=== PATIENT | male | born 1945 | race Caucasian/White ===

== ENCOUNTER 2018-06-20 15:06 | Observation (INO) | payer MEDICARE, OTHER ==
--- NOTE | 2018-06-20 15:59 | ED ---
HPI Cardiac - HPI Summary HPI Summary: The patient is a 72 y/o M presenting to [facility] accompanied by son with a chief complaint of pain in his left arm and headaches for the last four days. The pain is currently not present, but when present, movement aggravates the pain. He additionally c/o heart palpitations, nausea without vomiting, and occasional dizziness, weakness, and lightheadedness. He denies CP and SOB. He has hx of Type II DM and depression. He also had a stent placed in the early . His last stress test was last year. No smoking or EtOH. - History of Current Complaint Chief Complaint: EDChestPainROMI Stated Complaint: CHEST PAIN Time Seen by Provider: 06/20/18 15:40 Hx Obtained From: Patient Onset/Duration: Started Days Ago - four days Timing: Lasting Days - for four days Initial Severity: Moderate Current Severity: None Pain Intensity: 0 Pain Scale Used: 0-10 Numeric Character: Fast Aggravating Factor(s): Movement - when pain is present Alleviating Factor(s): Nothing Associated Signs and Symptoms: Positive: Headaches, Weakness - occasional, Dizziness - occasional, Nausea. Negative: Chest Pain, Shortness of Breath, Vomiting - Allergy/Home Medications Allergies/Adverse Reactions: Allergies Allergy/AdvReac Type Severity Reaction Status Date / Time diphenhydramine Allergy Agitation Verified 06/20/18 15:11 [From Benjarrelll] Home Medications: Home Medications Aspirin EC TAB* [Ecotrin EC Low Dose 81 MG*] 81 mg PO DAILY 06/20/18 [History Confirmed 06/20/18] Atorvastatin* [Lipitor*] 40 mg PO BEDTIME 06/20/18 [History Confirmed 06/20/18] Calcium Carbonate 650 mg PO DAILY 06/20/18 [History Confirmed 06/20/18] Citalopram TAB* [CeleXA TAB*] 20 mg PO DAILY 06/20/18 [History Confirmed ] Finasteride TAB* [Proscar TAB*] 5 mg PO BEDTIME 06/20/18 [History Confirmed 03/29] Hydrochlorothiazide TAB* [Hydrodiuril TAB*] 25 mg PO DAILY 06/20/18 [History Confirmed 06/20/18] Losartan TAB* [Cozaar TAB*] 100 mg PO BEDTIME 06/20/18 [History Confirmed ] Mirtazapine TAB* [Remeron TAB*] 7.5 mg PO BEDTIME 06/20/18 [History Confirmed ] amLODIPine TAB* [Norvasc 5 mg TAB*] 10 mg PO BEDTIME 06/20/18 [History Confirmed 06/20/18] cloNIDine TAB* [Catapres 0.1 MG TAB*] 0.1 mg PO TID PRN 06/20/18 [History Confirmed 06/20/18] glipiZIDE TAB* [Glucotrol TAB*] 10 mg PO BID WITH MEALS 06/20/18 [History Confirmed 06/20/18] metFORMIN* [Glucophage 500 MG TAB *] 500 mg PO BID WITH MEALS 06/20/18 [History Confirmed 06/20/18] PMH/Surg Hx/FS Hx/Imm Hx Endocrine/Hematology History: Reports: Hx Diabetes - Type II Psychiatric History: Reports: Hx Depression - Surgical History Surgery Procedure, Year, and Place: stent placement Infectious Disease History: No Infectious Disease History: Denies: Traveled Outside the [place] in Last 30 Days - Family History Known Family History: Positive: Cardiac Disease, Diabetes - Social History Alcohol Use: None Hx Substance Use: No Substance Use Type: Reports: None Hx Tobacco Use: No Smoking Status (MU): Never Smoked Tobacco Do You Chew or Dip Tobacco: No Have You Chewed or Dipped Tobacco in the LAST YEAR: No Review of Systems Negative: Fever, Chills Negative: Sore Throat Positive: Palpitations. Negative: Chest Pain Negative: Shortness Of Breath, Cough Positive: Nausea. Negative: Abdominal Pain, Vomiting Negative: dysuria, hematuria Positive: Other - pain in left arm. Negative: Myalgia, Edema Negative: Rash Neurological: Other - occasional dizziness and lightheadedness Positive: Headache. Negative: Weakness All Other Systems Reviewed And Are Negative: Yes Physical Exam - Summary Physical Exam Summary: Constitutional: Well-developed, Well-nourished, Alert. (-) Distressed Skin: Warm, Dry HENT: Normocephalic; Atraumatic Eyes: Conjunctiva normal Neck: Musculoskeletal ROM normal neck. (-) JVD, (-) Stridor, (-) Tracheal deviation Cardio: Rhythm regular, rate normal, Heart sounds normal; Intact distal pulses; The pedal pulses are 2+ and symmetric. Radial pulses are 2+ and symmetric. (-) Murmur Pulmonary/Chest wall: Effort normal. (-) Respiratory distress, (-) Wheezes, (-) Rales Abd: Soft, (-) epigastric tenderness, (-) Distension, (-) Guarding, (-) Rebound Musculoskeletal: (-) Edema Lymph: (-) Cervical adenopathy Neuro: Alert, Oriented x3 Psych: Mood and affect Normal Triage Information Reviewed: Yes Vital Signs On Initial Exam: Initial Vitals Temp Pulse Resp BP Pulse Ox 98.6 F 83 17 176/84 95 06/20/18 15:09 06/20/18 15:09 06/20/18 15:09 06/20/18 15:09 06/20/18 15:09 Vital Signs Reviewed: Yes - Nika Coma Scale Best Eye Response: 4 - Spontaneous Best Motor Response: 6 - Obeys Commands Best Verbal Response: 5 - Oriented Coma Scale Total: 15 Diagnostics - Vital Signs Vital Signs Temp Pulse Resp BP Pulse Ox 06/20/18 15:09 98.6 F 83 17 176/84 95 - Laboratory Result Diagrams: 06/20/18 15:57 06/20/18 15:57 Lab Statement: Any lab studies that have been ordered have been reviewed, and results considered in the medical decision making process. - Radiology CXR Radiology Interpretation Completed By: Radiologist Summary of Radiographic Findings: No radiographic evidence for acute cardiopulmonary abnormality on this portable chest x-ray. ED physician has reviewed this report. - CT Brain CT CT Interpretation Completed By: Radiologist Summary of CT Findings: 1. No acute intracranial pathology. 2. Chronic small vessel ischemic changes. ED physician has reviewed this report. - EKG 1513 Cardiac Rate: NL - 74 BPM EKG Rhythm: Sinus Rhythm Summary of EKG Findings: No STEMI. Disposition - Course Course Of Treatment: The patient is a 72 y/o M presenting to [facility] accompanied by son with a chief complaint of pain in his left arm and headaches for the last four days. He additionally c/o heart palpitations, nausea without vomiting , and occasional dizziness, weakness, and lightheadedness. He denies CP and SOB. Hx of Type II DM and depression. He also had a stent placed in the early . Most recent stress test last year. Upon physical exam, the patient exhibits no acute abnormalities. Blood work reveals elevated BUN/Creatinine and glucose. EKG is normal. CXR is negative. Brain CT is negative. I spoke with Dr. James at 1800; he accepts the patient for admission. Patient understands the need for admission and is agreeable. He is diagnosed with angina. - Diagnoses Provider Diagnoses: Angina at rest - Physician Notifications Discussed Care Of Patient With: Max James - hospitalist Time Discussed With Above Provider: 18:00 Instructed by Provider To: Other - Dr. James accepts the patient for admission. Discharge - Sign-Out/Discharge Documenting (check all that apply): Patient Departure - Patient will be admitted to [facility] for further care by Dr. Fang. - Discharge Plan Condition: Stable Disposition: ADMITTED TO [facility] - Billing Disposition and Condition Condition: STABLE Disposition: Admitted to [facility] - Attestation Statements Document Initiated by Anshul: Yes Documenting Scribe: Tayler Garza Provider For Whom Anshul is Documenting (Include Credential): Dr. Julio Cruz MD Scribe Attestation: I, Tayler Garza, scribed for Dr. Julio Cruz MD on 06/20/18 at 2115. Scribe Documentation Reviewed: Yes Provider Attestation: The documentation as recorded by the Tayler ro accurately reflects the service I personally performed and the decisions made by me, Dr. Julio Cruz MD Status of Scribe Document: Viewed
[2018-06-20 16:06] LABS: ABS Basophils 0 10^3/ul (0-0.2); ABS Eosinophils 0.1 10^3/ul (0-0.6); ABS Lymphocytes 1.1 10^3/ul (1.0-4.8); ABS Monocytes 0.4 10^3/ul (0-0.8); ABS Neutrophils 3.4 10^3/ul (1.5-7.7); ABS Nucleated RBC 0 10^3/ul; Eosinophil % 1.3 %; Hematocrit 40 % (42-52); Hemoglobin 13.9 g/dl (14.0-18.0); Lymphocyte % 21.6 %; Mean Corpuscular HGB Conc 35 g/dl (31-36); Mean Corpuscular Hemoglobin 29 pg (27-31); Mean Corpuscular Volume 84 fL (80-94); Mean Platelet Volume 6.5 fL (7.4-10.4); Nucleated Red Blood Cells % 0.1; Platelet Count 294 10^3/ul (150-450); Red Blood Count 4.81 10^6/ul (4.00-5.40); Red Cell Distribution Width 14 % (10.5-15); White Blood Count 5.1 10^3/ul (3.5-10.8)
[2018-06-20 16:13] LABS: INR 0.93 (0.77-1.02)
[2018-06-20 16:25] LABS: Albumin 4.6 g/dL (3.2-5.2); Albumin/Globulin Ratio 1.9 (1-3); BUN/Creatinine Ratio 29.4 (8-20); Calcium 9.2 mg/dL (8.6-10.3); EGFR Non-African American 51.4 (>60); Globulin 2.4 g/dL (2-4); Potassium 4.4 mmol/L (3.5-5.0); Total Bilirubin 0.6 mg/dL (0.2-1.0)
[2018-06-20] MEDS ORDERED: Acetaminophen TAB* 325 MG PO PRN (17:55)
[2018-06-20] MEDS ORDERED: Dextrose 50% Syringe 50 ML* 25 GM/50 ML SYRINGE IV PUSH PRN (17:58)
[2018-06-20] MEDS ORDERED: cloNIDine TAB* 0.1 MG PO PRN (17:59)
[2018-06-20] MEDS ORDERED: NS 0.9% 1000 ML* 1,000 ML IV SCH (18:00)
--- NOTE | 2018-06-20 19:42 | HP ---
CC: Chanel Martines NP, [facility]; Dr. Segovia,[facility] * HISTORY AND PHYSICAL: DATE OF ADMISSION: 06/20/18 PRIMARY CARE PROVIDER: Chanel Martines NP, from [facility]. CELLOPHANE WRAPPING EXAMINER: Dr. Segovia from [place] in [place]. CHIEF COMPLAINT: Left arm pain and headache. HISTORY OF PRESENT ILLNESS: Khari Baldwin is a 72-year-old male with history of diabetes, hypertension, hyperlipidemia and coronary artery disease whose last stent was placed into proximal LAD in 2008 at . The patient stated that he had a cardiac stress test approximately 2 years ago, which was unremarkable. Today, he presented to the hospital since he noted to have headaches and left arm pain for the past 4 days. The patient stated that this started on Sunday, which was 4 days ago. In the evening, he developed frontal headache, he vomited once and he also had left shoulder pain. The patient stated that usually the headaches come and go and coincide also with left shoulder pain. It usually happens in the evening when he is sitting in the afternoon watching TV. The headache and the arm pain are not exertional. There are no alleviating or aggravating factors, but they do tend to go away after he takes ibuprofen. They usually last minutes. He has noted that the headache is becoming more and more intense and he came into the ED for evaluation. Due to his left arm pain coinciding with a headache, the ER physician asked the hospitalist service to admit the patient for observation to rule out acute coronary syndrome. PAST MEDICAL HISTORY: 1. History of diabetes, type 2. 2. Hypertension. 3. Dyslipidemia. 4. Coronary artery disease, status post LAD proximal stenting in 2008 at [place], [place]. The patient stated that he had another cardiac catheterization a year later at the [facility] in [place], during which time, he did not require any further stenting. 5. History of right inguinal hernia. 6. Retinal detachment surgery in the right eye and bilateral cataract surgery. HOME MEDICATIONS: Include: 1. Metformin 500 mg b.i.d. 2. Aspirin 81 mg daily. 3. Remeron 7.5 mg at bedtime. 4. Losartan 100 mg daily. 5. Glipizide 10 mg b.i.d. 6. Hydrochlorothiazide 25 mg daily. 7. Proscar 5 mg daily. 8. Clonidine 0.1 mg t.i.d. 9. Celexa 20 mg daily. 10. Calcium carbonate 650 mg daily. 11. Atorvastatin 40 mg daily. 12. Amlodipine 10 mg daily. ALLERGIES: DIPHENHYDRAMINE. FAMILY HISTORY: Positive for mother who of heart attack in her 80s. Father left when he was young and his health history is unknown. SOCIAL HISTORY: The patient denies any tobacco, alcohol, or drug use. He is currently retired. 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 REVIEW OF SYSTEMS: Please see history of present illness. In addition to above mentioned, the patient stated that he has not had any recent travels. He denies any dyspnea on exertion. Apart from the headaches, he had been sleeping rather well. His weight had been unchanged. He has not had any recent illnesses. All the remaining 12 systems were reviewed with the patient and were otherwise negative. PHYSICAL EXAMINATION GENERAL: The patient is a very pleasant 72-year-old male, who is in no acute distress. Alert, awake, and oriented x3. VITAL SIGNS: Blood pressure of 176/84, heart rate of 83 and regular, respiratory rate 17, oxygen saturation 97% on room air, temperature 98.6. HEENT: Head: Atraumatic, normocephalic. Eyes: Pupils are equal, reactive to light and accommodation. Oropharynx is clear. Mucosa moist. NECK: Supple. No JVD. No bruits bilaterally. RESPIRATORY: Clear to auscultation bilaterally. CARDIOVASCULAR: Regular rate and rhythm. No murmur. ABDOMEN: Soft, nontender. Bowel sounds are present in all 4 quadrants. EXTREMITIES: There is no edema. Pulses are +2 bilaterally. No clubbing or cyanosis. NEUROLOGIC: Speech is clear. Cranial nerves II through XII are grossly intact. Motor strength is 5/5 bilaterally. PSYCHIATRIC: Oriented x3 with no evidence of anxiety or depression. DIAGNOSTIC STUDIES/LAB DATA: White blood cell count of 5.1, [id number], hematocrit 40, and platelets 294. Sodium 137, potassium 4.4, chloride 105, carbon dioxide 24, BUN 40, creatinine 1.36. Liver function tests unremarkable. Lactic acid 1.6, glucose of 250. Troponin of 0.01. The patient's EKG shows normal sinus rhythm with mild ST depression in the inferior leads. There was no old EKG available for comparison. The patient's portable chest x-ray showed no acute cardiopulmonary abnormality. ASSESSMENT AND PLAN: 1. Four days of headache that coincides with left shoulder pain. The patient did have an episode of nausea and vomiting once at the beginning of the headache. At this point, I will obtain a CT of the brain to rule out intracranial hemorrhage. The patient stated that he had gas heating in his house , but he is not aware of having carbon monoxide alarm. He has not had problems recently with this heating. 2. In regards to the patient's left shoulder pain being equivalent of angina. It is a little bit further since the pain is not exercise related at all. The patient has had good exercise tolerance so far. Nevertheless, he does have history of significant heart disease. At this point, the patient is going to be observed on telemetry monitored bed with followup troponins and cardiac stress test in the morning. 3. In regards to the patient's hypertension, at this point he is hypertensive, I believe it is probably a little bit of white coat hypertension. I will continue him on most of his medications with the exception of hydrochlorothiazide. The patient appears may be slightly dehydrated and the hydrochlorothiazide is going to be held and the patient is going to be placed on gentle intravenous hydration. 4. In regards to the patient's diabetes, the patient is going to be placed on insulin sliding scale, diabetic diet and his oral hypoglycemics are going to be held while in the hospital. 5. For DVT prophylaxis, the patient is going to be placed on heparin subcutaneously. 6. The patient's code status is full and his surrogate is his son, Khari. TIME SPENT: Approximately 65 minutes was spent on admission of this patient, more than half that time was spent [id number] with the patient during the interview and physical exam. [id number]/[facility] #: [id number] ROSSI
[2018-06-20] MEDS ORDERED: Losartan TAB* 25 MG PO SCH (20:00)
[2018-06-20] MEDS ORDERED: amLODIPine TAB* 5 MG PO SCH (20:00)
[2018-06-20] MEDS ORDERED: Atorvastatin* 40 MG TAB PO SCH (20:00)
[2018-06-20] MEDS ORDERED: Finasteride TAB* 5 MG PO SCH (20:00)
[2018-06-20] MEDS: cloNIDine TAB* 0.1 MG PO SCH (20:43)
[2018-06-20] MEDS: Insulin LISPRO* 1 UNITS UNIT SUBCUT SCH (20:44)
[2018-06-20] MEDS ORDERED: Mirtazapine TAB* 15 MG PO SCH (21:00)
[2018-06-20] MEDS: Heparin VIAL(*) 5000 UNITS/ML VIAL (FIVE THOUSAND) SUBCUT SCH (21:31)
[2018-06-21] MEDS: Heparin VIAL(*) 5000 UNITS/ML VIAL (FIVE THOUSAND) SUBCUT SCH ×2 (05:44→14:18)
[2018-06-21] MEDS: Insulin LISPRO* 1 UNITS UNIT SUBCUT SCH ×2 (08:13→13:01)
[2018-06-21] MEDS: Aspirin EC TAB* 81 MG TAB.EC PO SCH ×2 (08:22→12:08)
[2018-06-21] MEDS: cloNIDine TAB* 0.1 MG PO SCH (08:22)
[2018-06-21] MEDS: Citalopram TAB* 20 MG PO SCH ×2 (08:22→12:08)
[2018-06-21 08:35] LABS: ABS Basophils 0 10^3/ul (0-0.2); ABS Eosinophils 0.1 10^3/ul (0-0.6); ABS Lymphocytes 1.4 10^3/ul (1.0-4.8); ABS Monocytes 0.6 10^3/ul (0-0.8); ABS Neutrophils 2.5 10^3/ul (1.5-7.7); ABS Nucleated RBC 0 10^3/ul; Eosinophil % 2.4 %; Hematocrit 39 % (42-52); Hemoglobin 13.4 g/dl (14.0-18.0); Lymphocyte % 29.4 %; Mean Corpuscular HGB Conc 35 g/dl (31-36); Mean Corpuscular Hemoglobin 29 pg (27-31); Mean Corpuscular Volume 84 fL (80-94); Mean Platelet Volume 6.7 fL (7.4-10.4); Nucleated Red Blood Cells % 0.1; Platelet Count 249 10^3/ul (150-450); Red Blood Count 4.61 10^6/ul (4.00-5.40); Red Cell Distribution Width 14 % (10.5-15); White Blood Count 4.6 10^3/ul (3.5-10.8)
[2018-06-21 08:50] LABS: Calcium 8.9 mg/dL (8.6-10.3); EGFR Non-African American 58.2 (>60); HDL Cholesterol 36.5 mg/dL; Potassium 4.5 mmol/L (3.5-5.0)
[2018-06-21] MEDS ORDERED: Losartan TAB* 25 MG PO SCH (09:00)
[2018-06-21] MEDS ORDERED: Finasteride TAB* 5 MG PO SCH (09:00)
[2018-06-21] MEDS ORDERED: amLODIPine TAB* 5 MG PO SCH (09:00)
[2018-06-21] MEDS ORDERED: Atorvastatin* 40 MG TAB PO SCH (09:00)
[2018-06-21 15:49] VITALS: BP 146/48
--- NOTE | 2018-06-21 21:03 | DS ---
CC: Chanel Martines NP, [place]; Dr. Segovia, [facility] * DISCHARGE SUMMARY: DATE OF ADMISSION: 06/20/18. DATE OF DISCHARGE: 06/21/18. PRIMARY CARE PROVIDER: Chanel Martines NP from [place]. CUT ROLL MACHINE OPERATOR: Dr. Segovia, [facility]. DISCHARGE DIAGNOSIS: Episodes of headache and left shoulder pain with negative CT of the head and low probability cardiac stress test documented on 06/21/18. SECONDARY DIAGNOSES: 1. Increased creatinine, possibility of chronic kidney disease. 2. Diabetes type 2. 3. Hyperlipidemia. 4. Hypertension. 5. Coronary artery disease, status post LAD proximal stenting in 2008. 6. Right inguinal hernia repair. 7. History of retinal detachment in the right eye and bilateral cataract surgery. MEDICATIONS AT DISCHARGE: Unchanged from admission and include: 1. Metformin 500 mg b.i.d. 2. Aspirin 81 mg daily. 3. Remeron 7.5 mg at bedtime. 4. Losartan 100 mg daily. 5. Glipizide 10 mg b.i.d. 6. Hydrochlorothiazide 25 mg daily. 7. Proscar 5 mg daily. 8. Clonidine 0.1 mg 3 times a day p.r.n. 9. Celexa 20 mg daily. 10. Calcium carbonate 650 mg daily. 11. Atorvastatin 40 mg daily. 12. Amlodipine 10 mg daily. LABORATORY DATA AND STUDIES PERFORMED DURING THE HOSPITAL STAY: Included: On 04/29, white blood cell count of 4.6, hemoglobin of 13.4, hematocrit of 39, and platelets of 249,000. Sodium was 139, potassium 4.5, chloride 107, carbon dioxide 26, BUN 33, creatinine 1.22. Liver function tests were unremarkable at admission. The patient's troponins range between 0 to 0.01. Triglycerides were 120, cholesterol total of 160, LDL of 100, HDL of 36.5. Nuclear medicine cardiac stress test documented on 06/21/18 showed normal ejection fraction of 63% and no evidence of fixed or reversible perfusion defect. CT of the brain documented on 06/20/18 showed no acute intracranial pathology. HOSPITALIZATION COURSE: Khari Baldwin is a 72-year-old male with history of diabetes and hypertension as well as coronary artery disease, who presented to the hospital complaining of episodes of headache and left shoulder pain when he would be sitting and watching TV in the evening or in bed. The episodes would last for several minutes. The frontal headache would coincide with left shoulder pain and would resolve after the patient took ibuprofen. The patient stated that the pain appeared to be more severe with time and on the 4th day of those intermittent headaches and left shoulder pain, he presented to the ED for evaluation. Here, he basically had no major abnormal findings. His creatinine was slightly elevated at 1.36 and unfortunately, we do not have the patient's baseline. His EKG showed some nonspecific ST changes, but his troponin was negative. The patient had a workup that included CT of the head, which was unremarkable. The patient was observed on telemetry monitored bed and in the morning on 06/21/18, he underwent a treadmill cardiac stress test, which was also unremarkable. Please note that the patient noted to have a heart rate in the 30s while sleeping, asymptomatic. The patient stated that he always has "low heart rate." He is on clonidine, but he takes it only as needed for "the jitters." At this point, the patient was recommended not to use clonidine in the evening for the night. The patient is going to be discharged home with recommendation to follow up with Chanel Martines NP in approximately 4 to 7 days. Physical exam at discharge is unchanged from admission. [id number]/[facility] #: [id number] ROSSI
== END 2018-06-21 16:07 | disposition home or self-care (01) ==
LOC: ED 15:06 → MEDTELE 17:55
PROVIDERS: ADMIT Internal Medicine; ATTEND Internal Medicine
DX: R51 Headache (principal); M25.512 Pain in left shoulder; R79.89 Other specified abnormal findings of blood chemistry; E11.9 Type 2 diabetes mellitus without complications; E78.5 Hyperlipidemia, unspecified; I10 Essential (primary) hypertension; I25.10 Atherosclerotic heart disease of native coronary artery without angina pectoris; Z95.5 Presence of coronary angioplasty implant and graft; Z87.710 Personal history of (corrected) hypospadias; Z86.69 Personal history of other diseases of the nervous system and sense organs; Z79.82 Long term (current) use of aspirin; R00.2 Palpitations
CPT/HCPCS: 36415; 70450; 71045; 78452; 80048; 80053; 80061; 82553; 83605; 84484; 85025; 85610; 93005; 93017; 96372; 99283; A9270-GY; A9502; G0378